=== PATIENT | female | born 1975 | race Caucasian/White ===

== ENCOUNTER → 2022-11-20 | Outpatient (CLI) | payer BC, SELFPAY ==
[2022-11-20 09:10] VITALS: BP 104/72; PULSE 87; RESP 18; TEMP 36.6; O2SAT 98; BMI 21.6
--- NOTE | 2022-11-20 11:48 | PRO.PCM_ITS ---
Procedure Report Date of Procedure: 11/20/22 Assessment & Plan Assessment/Plan (1) Malignant neoplasm of anus, unspecified: PICC Line Consent Screening tool completed:: Yes Consent obtained:: Yes Consent given by (patient or responsible alliance party):: patient Line successful (if no, document why in comments):: Yes Insertion Reason for Insertion: Chemotherapy Date of Insertion: 11/20/22 Ok to use: Yes Type of PICC inserted: Single Power PICC PICC Lot #: [id number] PICC Reference #: [id number] Microintroducer Used: Yes (in kit) Ultrasound/Equipment Used: Probe Cover Kit Trimmed Length (cm): 43 Insertion Length (cm): 42 Exposed Length (cm): 1 Tip Placement: SVC (Superior Vena Cava) Placement Confirmation: 3CG Insertion Vein: Left Brachial Insertion Attempts: 1 Local Anesthesia Used: Lidocaine 1% (in kit) Dressing Applied: Tegaderm (CHG with Stat Lock) Patient Tolerated Procedure: Well Threading Difficulties: No Comments Comment: Patient tolerated procedure well. Patient given home instructions by myself and the nurses. Site covered with stockinette. Walked with patient to meet in waiting room. Patient will follow-up with Dr. Carrion for outpatient chemotherapy and further PICC care.
== END | disposition home or self-care (01) ==
PROVIDERS: PCP Family Medicine; Referring Provider Internal Medicine Hematology & Oncology; Visit Provider Internal Medicine Hematology & Oncology
DX: C21.0 Malignant neoplasm of anus, unspecified (principal)
CPT/HCPCS: 36569

== ENCOUNTER 2022-12-15 15:34 | Emergency (ER) | payer BC, SELFPAY ==
[2022-12-15 15:34] VITALS: BP 109/91; BP 86/55; PULSE 112; PULSE 133; RESP 16; RESP 18; TEMP 35.9; O2SAT 99; BMI 20.2
[2022-12-15 15:58] VITALS: BP 92/65; PULSE 95; RESP 16; O2SAT 99
--- NOTE | 2022-12-15 16:04 | EKG12_ITS ---
Test Reason : Blood Pressure : / mmHG Vent. Rate : 101 BPM Atrial Rate : 101 BPM P-R Int : 144 ms QRS Dur : 076 ms QT Int : 356 ms P-R-T Axes : 077 064 056 degrees QTc Int : 461 ms Sinus tachycardia Otherwise normal ECG Confirmed by KATHI MORALES, VASHTI ([id number]), makeup editor SOUMYA BARRETO ([id number]) on 12/21/2022 10:35:04 AM Referred By: OBIE Confirmed By:DEVIN ARMENTA MD
--- NOTE | 2022-12-15 16:05 | EX.ED.DYSGE1 ---
HPI History of Present Illness Chief Complaint: Weakness Informant: patient, spouse/S.O. and PCP Narrative Narrative: 47-year-old female with rectal cancer currently getting chemotherapy at [facility], last treatment was about 2.5 weeks ago, had a visit in the office today and was hypotensive and tachycardic and orthostatic. When they did orthostatics in the office, her heart rate went from 140-170. She did not have palpitations but she is being sent to the ER because according to the patient they were concerned about the possibility of a dysrhythmia. She states she has been dehydrated and going to the infusion center every day this past week, today being Wednesday she has not been since Wednesday, she states she was having diarrhea after the chemo but that is better now, she just has a very poor appetite, gets abdominal cramping and pain with eating, and her oral fluid intake is very poor. She denies having any fevers or other sources of illness. She is urinating. [facility] Medical History Anxiety Asthma Cancer Home Medications hydrocodone-acetaminophen 5-325mg 5mg-325mg 1 tab PO Q6H PRN PRN cough/pain ##20 07/26/14 [Rx Last Taken Unknown] alprazolam 0.5 mg tablet (Xanax) 0.5 mg PO TID PRN anxiety 11/20/22 [History Last Taken Unknown] ondansetron HCl 8 mg tablet 8 mg PO Q8H NAUSEA 12/15/22 [History Last Taken Unknown] Allergy/AdvReac Type Severity Reaction Status Date / Time No Known Allergies Allergy Verified 12/15/22 15:34 Social History Smoking Status: Never smoker ROS ROS ED Constitutional Constitutional ED: Reports fatigue and malaise; Denies chills or fever(s) Eyes Eyes: Denies change in vision or diplopia ENT ENT ED: Denies rhinorrhea or sore throat Cardiovascular Cardiovascular: Reports as per HPI, lightheadedness and orthostatic symptoms; Denies chest pain, palpitations or syncope Respiratory/Chest Respiratory/Chest: Denies cough or dyspnea Gastrointestinal Gastrointestinal: Reports nausea; Denies abdominal pain, diarrhea or vomiting Genitourinary Genitourinary ED: Denies dysuria or hematuria Musculoskeletal Musculoskeletal: Denies back pain or neck pain Integumentary Denies abscess or rash Neurologic Neurologic: Reports headache(s); Denies paresthesias or weakness Psychiatric Psychiatric: Denies anxiety or suicidal thoughts EXAM Physical Exam Const Vital Signs: 12/15/22 15:34 12/15/22 15:34 12/15/22 15:56 Temperature 96.6 F L Temperature Source Temporal Pulse Rate 133 H 112 H Pulse Rate [Lying] Pulse Rate [Sitting (for 1 minute prior to obtaining)] Pulse Rate [Standing (for 1 minute prior to obtaining)] Respiratory Rate 18 16 Respiratory Effort Normal Respiratory Pattern Normal Blood Pressure 109/91 H 86/55 L Blood Pressure [Lying] Blood Pressure [Sitting (for 1 minute prior to obtaining)] Blood Pressure [Standing (for 1 minute prior to obtaining)] Blood Pressure Mean 97 65 Blood Pressure Mean [Lying] Blood Pressure Mean [Sitting (for 1 minute prior to obtaining)] Blood Pressure Mean [Standing (for 1 minute prior to obtaining)] Pulse Ox 99 99 Oxygen Delivery Method Room Air Room Air 12/15/22 15:58 12/15/22 16:54 12/15/22 17:21 Temperature Temperature Source Pulse Rate 95 93 88 Pulse Rate [Lying] Pulse Rate [Sitting (for 1 minute prior to obtaining)] Pulse Rate [Standing (for 1 minute prior to obtaining)] Respiratory Rate 16 16 16 Respiratory Effort Respiratory Pattern Blood Pressure 92/65 97/65 96/66 Blood Pressure [Lying] Blood Pressure [Sitting (for 1 minute prior to obtaining)] Blood Pressure [Standing (for 1 minute prior to obtaining)] Blood Pressure Mean 74 75 76 Blood Pressure Mean [Lying] Blood Pressure Mean [Sitting (for 1 minute prior to obtaining)] Blood Pressure Mean [Standing (for 1 minute prior to obtaining)] Pulse Ox 99 100 98 Oxygen Delivery Method Room Air Room Air Room Air 12/15/22 18:29 12/15/22 18:37 Temperature Temperature Source Pulse Rate 88 Pulse Rate [Lying] 88 Pulse Rate [Sitting (for 1 minute prior to obtaining)] 84 Pulse Rate [Standing (for 1 minute prior to obtaining)] 90 Respiratory Rate 16 Respiratory Effort Respiratory Pattern Blood Pressure 97/64 Blood Pressure [Lying] 103/67 Blood Pressure [Sitting (for 1 minute prior to obtaining)] 107/73 Blood Pressure [Standing (for 1 minute prior to obtaining)] 103/74 Blood Pressure Mean 75 Blood Pressure Mean [Lying] 79 Blood Pressure Mean [Sitting (for 1 minute prior to obtaining)] 84 Blood Pressure Mean [Standing (for 1 minute prior to obtaining)] 83 Pulse Ox 100 Oxygen Delivery Method Room Air Positive well nourished and well developed General Appearance ED: well developed and NAD HEENT Reports moist mucous membranes normocephalic and atraumatic Eyes PERRL and EOMs intact bilaterally Neck full ROM and supple Resp normal respiratory effort and clear to auscultation bilaterally Cardio regular rate, regular rhythm and no murmurs Rate: other Other Details: Mild tachycardia between 100-110 GI non-tender and non-distended Auscultation: normoactive bowel sounds Palpation: soft Back/Spine no CVA tenderness General Back: other FROM Extremity normal to inspection General Extremety ED: Negative for edema, pulses abnormal or tenderness General Extremity: Negative for edema or pulses abnormal Neuro oriented x3, CN's II-XII intact bilaterally and no sensory deficits noted Sensorium / Orientation: awake and alert Motor Exam: strength 5/5 throughout Skin no rashes or lesions noted and no wounds MDM MDM MDM Narrative Medical decision making narrative: Labs noted. She was given 2 L of IV fluid, she was not hypotensive here and after the fluids her pulse is in the 80s. Pancytopenia noted, and there is no acute intervention or transfusion indicated for any of those at this time. Her renal function is good. EKG is normal showing sinus tachycardia, which I suspect she had when her pulse was high and she was orthostatic. She is feeling better after the fluids stable for discharge home. Lab Data Attestation: I reviewed the patient's lab results. Labs: Laboratory Results - last 24 hr 12/15/22 12/15/22 16:00 16:04 WBC 2.7 L RBC 3.54 L Hgb 11.1 L Hct 33.6 L MCV 94.9 MCH 31.4 MCHC 33.0 RDW Std Deviation 38.4 RDW Coeff of Shaheen 11.5 L Plt Count 116 L MPV 9.8 Immature Gran % (Auto) 0.700 Neut % (Auto) 72.3 H Lymph % (Auto) 13.9 L [place] % (Auto) 9.4 Eos % (Auto) 2.2 Baso % (Auto) 1.5 H Absolute Neuts (auto) 1.9 L Absolute Lymphs (auto) 0.37 L Nucleated RBC % 0 Differential Comment SCANNED Diff Path Review May foll Sodium 139 Potassium 3.6 Chloride 107 Carbon Dioxide 27.0 Anion Gap 5 BUN 15 Creatinine 0.86 Estim Creat Clear Calc 73.90 Est GFR (MDRD) Af Amer 91 Est GFR (MDRD) Non-Af 75 BUN/Creatinine Ratio 17.5 Glucose 128 H Calcium 9.5 Rhythm Strip Rhythm Strip: Sinus Tach Rate: 109 Ectopy: None EKG Initial EKG: Attestation: I personally reviewed and interpreted this EKG as follows: Interpretation: No Acute Injury Pattern and Sinus Tachycardia (Otherwise normal) Discharge Plan Triage Chief Complaint: Weakness ED Provider: Shahab Issa Dx/Rx/DC Orders Clinical Impression: Acute dehydration, Orthostatic hypotension, Pancytopenia due to antineoplastic chemotherapy Instructions: ED Dehydration (Adult) Prescriptions: No Action hydrocodone-acetaminophen 1 TABLET tablet 1 tab PO Q6H PRN PRN (Reason: cough/pain) Qty: 20 0RF alprazolam [Xanax] 0.5 mg tablet 0.5 mg PO TID PRN (Reason: anxiety) ondansetron HCl 8 mg tablet 8 mg PO Q8H Patient Comments: TAKE 1 TABLET BY MOUTH EVERY 8 HOURS NEEDED for chemotherapy induced nausea and vomiting Primary Care Provider: Terry Doyle Referrals: Terry Doyle MD [Primary Care Provider] - Kang Carrion DO [Med Staff - Active Staff] - Keep Marina appointment Activity Restrictions/Additional Instructions: WBC 2.7 Hgb 11.1 Platelets 116 Disposition Disposition: Home, Self Care
[2022-12-15] MEDS: Ondansetron 4 MG/2 ML Vial IV (16:11)
[2022-12-15] MEDS: 0.9% Normal Saline (1000mL) 1,000 ML 999 ML IV ×2 (16:11→17:19)
[2022-12-15 16:18] LABS: Absolute Lymphocyte Count 0.37 X10^3/uL (0.83-4.51); Absolute Neutrophil Count 1.9 X10^3/uL (2.0-7.7); Basophil# 0.04 X10^3/uL; Basophil% 1.5 % (0-1); Eosinophil# 0.06 X10^3/uL; Eosinophils% 2.2 % (0-5); Hematocrit 33.6 % (37-47); Hemoglobin 11.1 g/dL (12.0-15.0); Lymphocyte # 0.37 X10^3/ul (0.83-4.51); Lymphocyte % 13.9 % (19-41); Mean Corpuscular Hgb 31.4 pg (27.0-32.0); Mean Corpuscular Volume 94.9 fL (81-99); Mean Platelet Vol. 9.8 fl (6.2-12.0); Monocyte# 0.25 X10^3/uL; Monocyte% 9.4 % (0-10); NRBC Flagged by Analyzer 0 % (0-5); Neutrophil # 1.93 X10^3/uL (2.7-7.7); Neutrophil % 72.3 % (47-70); POSITIVE DIFFERENTIAL YES; Platelet Count 116 K/mm3 (150-450); RBC Distribution Width CV 11.5 % (11.6-14.6); RBC Distribution Width SD 38.4 fl (35.1-43.9); Red Blood Count 3.54 M/mm3 (4.2-5.4); White Blood Count 2.7 K/mm3 (4.4-11.0)
[2022-12-15 16:20] LABS: Differential Indicated SCAN CRITERIA MET
[2022-12-15 16:31] LABS: Differential Comment SCANNED
[2022-12-15 16:46] LABS: Anion Gap 5 (5-15); BUN 15 mg/dL (7-18); BUN/Creat Ratio 17.5 RATIO (10-20); Calcium,Total 9.5 mg/dL (8.5-10.1); Chloride 107 mmol/L (98-107); Creatinine, Serum 0.86 mg/dL (0.55-1.02); EST Glomerular Filtration Rate 75 mL/min (>60); Est Glom Filt Rate - Afr Amer 91 mL/min (>60); Glucose 128 mg/dL (74-106); Potassium 3.6 mmol/L (3.5-5.1); Sodium Level 139 mmol/L (136-145)
[2022-12-15 16:54] VITALS: BP 97/65; PULSE 93; RESP 16; O2SAT 100
[2022-12-15 17:21] VITALS: BP 96/66; PULSE 88; RESP 16; O2SAT 98
[2022-12-15 18:29] VITALS: BP 97/64; PULSE 88; RESP 16; O2SAT 100
[2022-12-15 18:37] VITALS: BP 103/67; BP 103/74; BP 107/73; PULSE 84; PULSE 88; PULSE 90
[2022-12-17 09:18] LABS: Pathologist Review Reviewed
== END 2022-12-15 18:49 | disposition home or self-care (01) ==
PROVIDERS: Emergency Provider Emergency Medicine; PCP Family Medicine; Visit Provider Emergency Medicine
DX: E86.0 Dehydration (principal); D61.810 Antineoplastic chemotherapy induced pancytopenia; C20 Malignant neoplasm of rectum; R00.0 Tachycardia, unspecified; I95.1 Orthostatic hypotension; T45.1X5A Adverse effect of antineoplastic and immunosuppressive drugs, initial encounter; J45.909 Unspecified asthma, uncomplicated
CPT/HCPCS: 80048; 85025; 93005; 96361; 96374; 99285; J7030; A4216; J2405

== ENCOUNTER → 2022-12-21 | Outpatient (CLI) | payer BC, SELFPAY ==
[2022-12-21 08:11] VITALS: BP 117/68; PULSE 80; RESP 16; TEMP 36.3; O2SAT 99
--- NOTE | 2022-12-21 09:38 | PCM.OP.PRO ---
Procedure Report Date of Procedure: 12/21/22 Assessment & Plan Assessment/Plan (1) Malignant neoplasm of anus, unspecified: Procedure Time Out Time Out Informed consent given: Yes Consent signed: Yes Time out checklist: patient, procedure, site marked/identified, positioning of patient, supplies available, allergies confirmed and team agrees on procedure Time out staff in room: Yes Time out verified: Yes Time out date: 12/21/22 Time out time: 08:15 PICC Line Consent Consent obtained:: Yes Consent given by (patient or responsible constitution party):: patient Line successful (if no, document why in comments):: Yes Insertion Reason for Insertion: Chemotherapy Date of Insertion: 12/21/22 Ok to use: Yes Type of PICC inserted: Single Power PICC PICC Lot #: [id number] PICC Reference #: [id number] Microintroducer Used: Yes (in kit) Ultrasound/Equipment Used: Probe Cover Kit Trimmed Length (cm): 45 Insertion Length (cm): 41 Exposed Length (cm): 4 Tip Placement: Caval Atrial Junction Placement Confirmation: 3CG Insertion Vein: Left Brachial Insertion Attempts: 1 Local Anesthesia Used: Lidocaine 1% (in kit) Dressing Applied: Statlock and Tegaderm CHG Arm Measurement above site (in cm): 26 Patient Tolerated Procedure: Fair Threading Difficulties: No Comments Comment: Pt ambulatory to [facility] for infusion at Dr. Carrion's office. Comments Summary Comments: Patient noted feeling it more this insertion than last. The same left brachial vein was used for this insertion again today. Patient was given more lidocaine at insertion site while obtaining vena puncture and prior to insertion of dilator. Patient described sensation of catheter moving across her chest on insertion. However, once PICC line was in position, as per 3 CG technology with documented P wave changes, and multiple normal saline flushes were pushed with verified blood return prior, patient had no complaints. Catheter was secured. Patient slowly sat up and was able to dress independently. Patient was ambulatory to waiting room to meet .
== END | disposition home or self-care (01) ==
PROVIDERS: PCP Family Medicine; Referring Provider Internal Medicine Hematology & Oncology; Visit Provider Internal Medicine Hematology & Oncology
DX: C21.0 Malignant neoplasm of anus, unspecified (principal)
CPT/HCPCS: 36569